=== PATIENT | male | born 1950 | race Caucasian/White ===

== ENCOUNTER 2018-09-20 18:05 | Inpatient (IN) | payer OTHER ==
[~2018-09-20] VITALS: Ht 182.9 cm; Wt 88.3 kg
[~2018-09-20 18:05] MED LIST: ASPI-1155 PO; CARV6.2554 PO; FURO-150 PO; LISI2.5T48 PO; PRAV20TA PO
[2018-09-20 18:14] VITALS: BP_SYST 157
[2018-09-20 18:43] LABS: BASOPHILS % (AUTO) 0.6 % (0.0-2.0); EOSINOPHILS % (AUTO) 0.7 % (0.0-4.0); HEMATOCRIT 47.5 % (36-54); HEMOGLOBIN 16.2 g/dL (14.0-18.0); LYMPHOCYTES # (AUTO) 1.7 K/uL (1.0-5.5); LYMPHOCYTES % (AUTO) 29.4 % (20.5-51.5); MEAN CORPUSCULAR HEMOGLOBIN 33 pg (27-31); MEAN CORPUSCULAR HGB CONC 34 % (32-36); MEAN CORPUSCULAR VOLUME 96 fL (79.0-98.0); MONOCYTES # (AUTO) 0.4 K/uL (0.0-1.0); MONOCYTES % (AUTO) 7.2 % (1.7-9.3); NEUTROPHILS # (AUTO) 3.6 K/uL (1.8-7.7); NEUTROPHILS % (AUTO) 62.1 % (40.0-70.0); PLATELET COUNT (AUTO) 192 K/uL (130-430); RED BLOOD CELL COUNT(AUTO) 4.96 MIL/uL (4.2-6.2); RED CELL DISTRIBUTION WIDTH 13.2 % (9.0-15.0); WHITE BLOOD COUNT (AUTO) 5.9 K/uL (4.8-10.8)
[2018-09-20 18:56] LABS: CALCIUM 10.1 mg/dL (8.4-11.0); CREATININE 0.9 mg/dL (0.55-1.30); POTASSIUM 4.9 mmol/L (3.5-5.1)
[2018-09-20 19:01] LABS: ALBUMIN 3.4 g/dL (3.4-4.8); TOTAL BILIRUBIN 0.9 mg/dL (0.0-1.0)
[2018-09-20 19:24] LABS: INR 1.1 (0.80-1.20); PROTHROMBIN TIME 10.8 SECS (9.5-12.5)
[2018-09-20] MEDS ORDERED: SACU1TAB PO (19:35)
[2018-09-20] MEDS ORDERED: MORPHINE 2 MG/ML INJ. SYRINGE IVP PRN (19:45)
[2018-09-20 20:25] VITALS: BP_SYST 136
[2018-09-20] MEDS ORDERED: NITROGLYCERIN 0.4 MG TAB.SUBL SL PRN (22:45)
[2018-09-21 00:22] VITALS: BP_SYST 121
[2018-09-21 08:45] VITALS: BP_SYST 122
[2018-09-21] MEDS: FUROSEMIDE 20 MG TABLET PO SCH (08:56)
[2018-09-21] MEDS: ASPIRIN 81 MG TAB.CHEW PO SCH (08:57)
[2018-09-21] MEDS: CARVEDILOL 6.25 MG TABLET (COREG) PO SCH ×2 (08:57→17:38)
[2018-09-21] MEDS: ATORVASTATIN 10 MG TABLET PO SCH (08:57)
[2018-09-21] MEDS ORDERED: ENTRESTO PO SCH (09:00)
[2018-09-21] MEDS ORDERED: LISINOPRIL 5 MG TABLET PO SCH (09:00)
[2018-09-21 12:00] VITALS: BP_SYST 137
[2018-09-21 16:13] VITALS: BP_SYST 145
[2018-09-21] MEDS ORDERED: ACETAMINOPHEN 325 MG TABLET PO PRN (18:30)
[2018-09-21 20:45] VITALS: BP_SYST 120
[2018-09-21] MEDS ORDERED: PRAVASTATIN SODIUM 20 MG TABLET (PRAVACHOL) PO SCH (21:00)
[2018-09-21 23:54] VITALS: BP_SYST 120
[2018-09-22] MEDS: ATORVASTATIN 10 MG TABLET PO SCH (09:22)
[2018-09-22] MEDS: ASPIRIN 81 MG TAB.CHEW PO SCH (09:22)
[2018-09-22] MEDS: FUROSEMIDE 20 MG TABLET PO SCH (10:16)
[2018-09-22] MEDS: CARVEDILOL 6.25 MG TABLET (COREG) PO SCH (10:17)
[2018-09-22 12:38] VITALS: BP_SYST 125
[2018-09-22 16:20] VITALS: BP_SYST 119
[2018-09-22 17:27] VITALS: BP_SYST 136
== END 2018-09-22 17:25 | disposition home or self-care (01) | DRG 206 ==
LOC: SED 18:05 → STU 19:41
PROVIDERS: ADMIT Internal Medicine Hospice and Palliative Medicine; ATTEND Internal Medicine Hospice and Palliative Medicine
DX: M94.0 Chondrocostal junction syndrome [Tietze] (principal); I42.9 Cardiomyopathy, unspecified; E78.00 Pure hypercholesterolemia, unspecified; I10 Essential (primary) hypertension; Z95.810 Presence of automatic (implantable) cardiac defibrillator; Z79.82 Long term (current) use of aspirin; Z79.899 Other long term (current) drug therapy
CPT/HCPCS: 36415; 71045; 80053; 83880; 84484; 85025; 85610-TC; 85730-TC; 93005; 99285; G0378